=== PATIENT | female | born 1960 | race Caucasian/White ===

== ENCOUNTER 2018-01-06 00:04 | Observation (INO) | payer OTHER ==
[2018-01-06] MEDS ORDERED: ASPIRIN 81 MG CHEWABLE TAB PO ONE (00:15)
[2018-01-06] MEDS ORDERED: NS 1,000 ML IV ONE (00:15)
--- NOTE | 2018-01-06 00:15 | EDPHY ---
H & P Stated Complaint: pressure CP mid strenal Time Seen by Provider: 01/06/18 00:15 HPI/ROS: HPI CHIEF COMPLAINT: Chest pressure. HISTORY OF PRESENT ILLNESS: 57-year-old female, history of anxiety, as well as SVT, presents emergency room with substernal chest pressure. Does not radiate. She states this started 3 hr ago. It has been constant. She lives up in [place] for [place]. She decided to come here this evening as her principal bioinformatics specialist is here. She denies any radiation of pain but complains of current substernal chest pressure. She has felt nauseous earlier. Denies pleuritic pain. Denies shortness of breath. Denies radiation of pain. Denies recent illness. Denies fever productive cough. Patient reports to me she has not been taking her verapamil. ===== Of note there are no old records in the system under this account however was able to located different account and [address] Lora. Past Medical History: History of SVT, AVRNT, anxiety Past Surgical History: Appendectomy, gallbladder removal, cardiac ablation. Social History: Denies daily use drugs alcohol tobacco. Resides in [place] Family History: Denies. ROS REVIEW OF SYSTEMS: 10 Systems were reviewed and negative with the exception of the elements mentioned in the history of present illness. Exam Constitutional nontoxic triage nursing summary reviewed, vital signs reviewed , awake/alert. Heart rate 199. Blood pressure stable. Eyes normal conjunctivae and sclera, EOMI, PERRLA. HENT normal inspection, atraumatic, moist mucus membranes, no epistaxis, neck supple/ no meningismus, no raccoon eyes. Respiratory clear to auscultation bilaterally, normal breath sounds, no respiratory distress, no wheezing. Cardiovascular very tachycardic., regular rhythm, no murmur, no edema, distal pulses normal. Gastrointestinal soft, non-tender, no rebound, no guarding, normal bowel sounds, no distension, no pulsatile mass. Genitourinary no CVA tenderness. Musculoskeletal no midline vertebral tenderness, full range of motion, no calf swelling, no tenderness of extremities, no meningismus, good pulses, neurovascularly intact. Skin pink, warm, & dry, no rash, skin atraumatic. Neurologic awake, alert and oriented x 3, AAOx3, moves all 4 extremities equally, motor intact, sensory intact, CN II-XII intact, normal cerebellar, normal vision, normal speech. Psychiatric normal mood/affect. Heme/Lymph/Immune no lymphadenopathy. Differential diagnosis includes but is not limited to: ACS, atypical chest pain , pneumothorax, pneumonia, pulmonary embolism, aortic dissection, congestive heart failure, tumor, musculoskeletal pain, esophageal pain, GERD, peptic ulcer disease, pancreatitis Medical Decision Making: Plan for this patient IV establishment full child monitor, EKG, check troponin, D-dimer, chest x-ray, give full-dose aspirin, give a dose of nitroglycerin to see if this improves her discomfort. Re- evaluate. Close cardiac monitoring. Re-evaluation: EKG interpretation by me on record in [facility] system. Impression time of EKG 0022: EKG reveals supraventricular tachycardia rate of 199. Right bundle- branch block present. 1243: This patient was moved to ER room 2 where she was set up for chemical cardioversion with adenosine for SVT patient reports to me that she has had adenosine in the past multiple times without any affect. She states that it typically does not work. I did attempt 6 mg of adenosine which did not have any benefit. I then subsequently tried 12 mg IV adenosine which did not have any benefit. She remains in SVT with a heart rate in the 170s to 190s. She does complain of chest pressure. Given that adenosine did not work and in the past she has had to have a rapid milk given I will consult Cardiology for further recommendations. She also has had in the past electrical cardioversion. She is not on stable this time. Blood pressure stable. She received fentanyl for pain control. 1257: I spoke with Dr. Amaya. Recommends a bolus of amiodarone. Will review the EKG. 0106: Patient converted by herself heart rate is currently 96. She is feeling much better. At this time of conversion she did not receive any amiodarone. Repeat EKG status: Normal sinus rhythm rate of 95, Q-waves V1 V2 V3. No ST elevation. Time of EKG 1:05 a.m., this is an EKG performed after she self converted. 0123: Spoke with Dr. Urbano Amaya with Cardiology reviewed the case in detail. Patient be admitted to PCU for telemetry monitoring. He does not want any current medications. Initially she was going to get amio. This was not given. Patient hemodynamically stable and feeling much better after heart rate is down from 199 to currently 95. She denies any chest pain at this time. 1:24 a.m.. I asked the hospitalist service for admission Dr. Maria. Discussed case in detail. Agrees to admit. 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 In the past patient is been cardioverted additionally has had 2 ablations, additionally has chemically cardioverted with 2.5 mg IV verapamil. Source: Patient - Personal History Current Tetanus/Diphtheria Vaccine: Yes Current Tetanus Diphtheria and Acellular Pertussis (TDAP): Yes - Medical/Surgical History Hx Asthma: No Hx Chronic Respiratory Disease: No Hx Diabetes: No Hx Cardiac Disease: Yes Hx Renal Disease: No Hx Cirrhosis: No Hx Alcoholism: No Hx HIV/AIDS: No Hx Splenectomy or Spleen Trauma: No Other PMH: SVT, ablation, appy, cholecystectomy - Social History Smoking Status: Never smoked Constitutional: Initial Vital Signs Temperature (C) 36.6 C 01/06/18 00:08 Heart Rate 84 01/06/18 00:08 Respiratory Rate 18 01/06/18 00:08 Blood Pressure 98/71 L 01/06/18 00:08 O2 Sat (%) 94 01/06/18 00:08 O2 Delivery Mode Nasal Cannula O2 (L/minute) 2 Allergies/Adverse Reactions: amoxicillin Allergy (Verified 01/06/18 10:55) Hives aspirin Allergy (Verified 01/06/18 10:55) Anxiety Home Medications: Medication Instructions Recorded ALPRAZolam [Xanax 1 MG (*)] 1 mg PO HS 01/06/18 Doxepin HCl 37.5 mg PO HS 01/06/18 Estradiol [Estradiol 1 MG (*)] 2 mg PO HS 01/06/18 Ibuprofen [Motrin (*)] 200 mg PO DAILY PRN 01/06/18 Multivitamins [Multivitamin (*)] 1 each PO DAILY 01/06/18 Spironolactone [Aldactone] 100 mg PO HS 01/06/18 Verapamil [Calan 40MG (*)] 40 mg PO TID #90 tab 01/06/18 Medical Decision Making - Data Points Laboratory Results: Laboratory Results 01/06/18 00:25 01/06/18 00:25 Medications Given: Discontinued Medications Adenosine (Adenosine) 6 mg IVP EDNOW ONE Stop: 01/06/18 00:26 Last Admin: 01/06/18 00:37 Dose: 6 mg Adenosine (Adenosine) 12 mg IVP EDNOW ONE Stop: 01/06/18 00:47 Last Admin: 01/06/18 00:41 Dose: 12 mg Aspirin (Aspirin) 324 mg PO EDNOW ONE Stop: 01/06/18 00:16 Last Admin: 01/06/18 00:30 Dose: Not Given Enoxaparin Sodium (Lovenox) 40 mg SC DAILY [facility] Stop: 07/05/18 08:59 Last Admin: 01/06/18 09:25 Dose: 40 mg Fentanyl (Sublimaze) 50 mcg IVP EDNOW ONE Stop: 01/06/18 00:47 Last Admin: 01/06/18 00:47 Dose: 50 mcg Sodium Chloride (Ns) 1,000 mls @ 0 mls/hr IV EDNOW ONE; Wide Open PRN Reason: Protocol Stop: 01/06/18 00:16 Last Admin: 01/06/18 00:30 Dose: 1,000 mls Amiodarone HCl 300 mg/ (Dextrose) 106 mls @ 318 mls/hr IV ONCE ONE Stop: 01/06/18 01:14 Last Admin: 01/06/18 01:17 Dose: Not Given Nitroglycerin (Nitrostat) 0.4 mg SL EDNOW ONE Stop: 01/06/18 00:21 Last Admin: 01/06/18 01:17 Dose: Not Given Verapamil HCl (Calan) 40 mg PO TID [facility] Stop: 07/05/18 09:59 Last Admin: 01/06/18 10:08 Dose: 40 mg Point of Care Test Results: Chemistry 01/06/18 00:25 POC Troponin I 0.07 ng/mL ng/mL (0.00-0.08) Departure - Departure Disposition: [facility] Acute Clinical Impression: SVT (supraventricular tachycardia) Condition: Good
[2018-01-06] MEDS ORDERED: NITROGLYCERIN 0.4 MG BTL SL ONE (00:20)
[2018-01-06] MEDS ORDERED: ADENOSINE 6 MG/2 ML VIAL IVP ONE ×2 (00:25→00:46)
[2018-01-06] MEDS ORDERED: fentaNYL 100 MCG/2 ML INJ ONE (00:44)
[2018-01-06] MEDS ORDERED: fentaNYL 100 MCG/2 ML INJ IVP ONE (00:46)
[2018-01-06] MEDS ORDERED: AMIODARONE HCL 300 MG in D5W 100 ML IV ONE (00:55)
[2018-01-06 01:06] LABS: PLATELET COUNT 243 10^3/uL (150-400)
[2018-01-06 01:12] LABS: INR 1.05 (0.83-1.16); PROTIME(PATIENT) 13.9 SEC (12.0-15.0)
[2018-01-06] MEDS ORDERED: ACETAMINOPHEN 325 MG TAB PO PRN (01:21)
[2018-01-06] MEDS ORDERED: ONDANSETRON DISINTEGRATING 4 MG TAB PO PRN (01:21)
[2018-01-06] MEDS ORDERED: ONDANSETRON 4 MG/2 ML VIAL IVP PRN (01:21)
--- NOTE | 2018-01-06 01:51 | PDGENHP ---
History and Physical - Chief Complaint Chest pressure - History of Present Illness 57 yo F w/ hx of fascicular ventricular tachycardia presents with chest pressure. Patient noted onset of severe, central chest pressure at around 8:30 PM. She checked her vital signs and noted an elevated, fluctuating heart rate. She took some long acting Verapamil that she keeps in her purse and drove down to our ED from [place]. She stopped taking her Verapamil several months ago due to side effect of severe constipation. Upon arrival in the ED she was given adenosine, which was ineffective. Cardiology was consulted (Dr. Amaya), who requested amiodarone. However, prior to this being given, patient converted to sinus rhythm. At the time of my evaluation she is feeling well and remains in sinus rhythm. Case discussed with ED physician Dr. Diallo; records reviewed in EMR (two separate accounts under same name). History Information - Allergies/Home Medication List Allergies/Adverse Reactions: amoxicillin Allergy (Verified 01/06/18 00:13) Home Medications: Doxapram HCl 01/06/18 [Last Taken Unknown] Estradiol 01/06/18 [Last Taken Unknown] Spironolactone 01/06/18 [Last Taken Unknown] Verapamil ER 01/06/18 [Last Taken Unknown] I have personally reviewed and updated: family history, medical history - Past Medical History Additional medical history: AVNRT s/p ablation. Fascicular ventricular tachycardia s/p ablation but with recurrence. Male to female hormone therapy - Surgical History Reports: appendectomy, cholecystectomy - Family History Positive for: CAD - Social History Smoking Status: Never smoked Review of Systems Review of Systems: ROS: 10pt was reviewed & negative except for what was stated in HPI & below Physical Exam Physical Exam: Temp Pulse Resp BP Pulse Ox 36.6 C 95 18 103/82 H 92 01/06/18 00:08 01/06/18 01:16 01/06/18 01:16 01/06/18 01:16 01/06/18 01:16 Constitutional: no apparent distress, not in pain Eyes: PERRL, EOMI Ears, Nose, Mouth, Throat: moist mucous membranes, no oral mucosal ulcers Cardiovascular: regular rate and rhythym, no murmur, rub, or gallop Respiratory: no respiratory distress, clear to auscultation Gastrointestinal: normoactive bowel sounds, soft, non-tender abdomen Skin: warm, normal color Musculoskeletal: full muscle strength, no muscle tenderness Neurologic: AAOx3, CN II-XII Intact Psychiatric: interacting appropriately, not anxious Lab Data & Imaging Review 01/06/18 00:25 01/06/18 00:25 WBC 7.28 10^3/uL (3.80-9.50) 01/06/18 00:25 RBC 5.94 10^6/uL (4.18-5.33) H 01/06/18 00:25 Hgb 17.6 g/dL (12.6-16.3) H 01/06/18 00:25 Hct 51.4 % (38.0-47.0) H 01/06/18 00:25 MCV 86.5 fL (81.5-99.8) 01/06/18 00:25 MCH 29.6 pg (27.9-34.1) 01/06/18 00:25 MCHC 34.2 g/dL (32.4-36.7) 01/06/18 00:25 RDW 12.3 % (11.5-15.2) 01/06/18 00:25 Plt Count 243 10^3/uL (150-400) 01/06/18 00:25 MPV 10.9 fL (8.7-11.7) 01/06/18 00:25 Neut % (Auto) 59.0 % (39.3-74.2) 01/06/18 00:25 Lymph % (Auto) 27.2 % (15.0-45.0) 01/06/18 00:25 [place] % (Auto) 10.4 % (4.5-13.0) 01/06/18 00:25 Eos % (Auto) 2.5 % (0.6-7.6) 01/06/18 00:25 Baso % (Auto) 0.5 % (0.3-1.7) 01/06/18 00:25 Nucleat RBC Rel Count 0.0 % (0.0-0.2) 01/06/18 00:25 Absolute Neuts (auto) 4.29 10^3/uL (1.70-6.50) 01/06/18 00:25 Absolute Lymphs (auto) 1.98 10^3/uL (1.00-3.00) 01/06/18 00:25 Absolute Monos (auto) 0.76 10^3/uL (0.30-0.80) 01/06/18 00:25 Absolute Eos (auto) 0.18 10^3/uL (0.03-0.40) 01/06/18 00:25 Absolute Basos (auto) 0.04 10^3/uL (0.02-0.10) 01/06/18 00:25 Absolute Nucleated RBC 0.00 10^3/uL (0-0.01) 01/06/18 00:25 Immature Gran % 0.4 % (0.0-1.1) 01/06/18 00:25 Immature Gran # 0.03 10^3/uL (0.00-0.10) 01/06/18 00:25 PT 13.9 SEC (12.0-15.0) 01/06/18 00:25 INR 1.05 (0.83-1.16) 01/06/18 00:25 APTT 27.8 SEC (23.0-38.0) 01/06/18 00:25 D-Dimer < 0.27 ug/mLFEU (0.00-0.50) 01/06/18 00:25 Sodium 138 mEq/L (135-145) 01/06/18 00:25 Potassium 4.0 mEq/L (3.3-5.0) 01/06/18 00:25 Chloride 101 mEq/L (97-110) 01/06/18 00:25 Carbon Dioxide 26 mEq/l (22-31) 01/06/18 00:25 Anion Gap 11 mEq/L (6-14) 01/06/18 00:25 BUN 20 mg/dL (7-23) 01/06/18 00:25 Creatinine 1.1 mg/dL (0.6-1.0) H 01/06/18 00:25 Estimated GFR 51 01/06/18 00:25 Glucose 168 mg/dL (70-100) H 01/06/18 00:25 Calcium 9.9 mg/dL (8.5-10.4) 01/06/18 00:25 Magnesium 1.9 mg/dL (1.6-2.3) 01/06/18 00:25 Total Bilirubin 0.5 mg/dL (0.1-1.4) 01/06/18 00:25 Conjugated Bilirubin 0.2 mg/dL (0.0-0.5) 01/06/18 00:25 Unconjugated Bilirubin 0.3 mg/dL (0.0-1.1) 01/06/18 00:25 AST 22 IU/L (14-46) 01/06/18 00:25 ALT 27 IU/L (9-52) 01/06/18 00:25 Alkaline Phosphatase 65 IU/L (38-126) 01/06/18 00:25 POC Troponin I 0.07 ng/mL (0.00-0.08) 01/06/18 00:25 NT-Pro-B Natriuret Pep 64 pg/mL (0-125) 01/06/18 00:25 Total Protein 6.8 g/dL (6.3-8.2) 01/06/18 00:25 Albumin 3.9 g/dL (3.5-5.0) 01/06/18 00:25 Lipase 90 IU/L (23-300) 01/06/18 00:25 Visualized and Interpreted EKG results: Yes EKG Interpretation: Positive for: other (SVT HR>190) Assessment & Plan Assessment: 57 yo F w/ hx of fascicular ventricular tachycardia presents with recurrence. Plan: 1. Tachycardia - Likely recurrence of known fascicular ventricular tachycardia. She had an ablation for this in 2006 but has had a few recurrences since. She stopped taking her verapamil several months ago due to side effect of constipation. She did take some verapamil this evening, which is likely what terminated her tachycardia after a few hours noting it was long acting with slow onset. - Admit to PCU for observation - Cardiology consulted, will see patient in the morning - TTE ordered for further evaluation - Will check TSH with morning labs 2. Hormonal therapy - On spironolactone and estradiol daily. - Continue pending reconciliation Diet - NPO pending cardiology evaluation Code - Full Ppx - LMWH Dispo - Admit under observation status
[2018-01-06 05:08] LABS: PLATELET COUNT 187 10^3/uL (150-400)
[2018-01-06 07:52] VITALS: BP 112/58
[2018-01-06] MEDS ORDERED: ENOXAPARIN 40 MG/0.4 ML SYR SC SCH (09:00)
[2018-01-06] MEDS ORDERED: MAGNESIUM HYDROXIDE 30 ML UDCUP PO PRN (09:50)
--- NOTE | 2018-01-06 09:50 | PDCARPN ---
Cardiology Progress Note Chief Complaint: fascicular VT Assessment/Plan: Assessment: 57-y/o F PMH SVT and NSVT s/p previous AVNRT. Has been on Verapamil but has not been taking this for several months due to severe obstipation. Presented yesterday with VT. Spontaneously converted in the ED after having taken oral Verapamil prior to arrival. Did have associated severe chest pressure. #. VT: will plan to resume Verapamil she requests short-acting to see if that mitigates her obstipation #. cp: pt reports previous episodes of cp when having tachycardia ECG appears nonischemic and POC trop negative will repeat trop now will likely plan for outpatient nuc #. obstipation: we reviewed trial of different laxatives try Milk of Mag as daily Plan: 01/06/18 09:45 Subjective: No further cp or palps. We discussed here severe constipation which requires self-disimpaction. This has resolved in the absence of Verapamil. Reviewed/Discussed With: other (Drs. Lora and Mekhi) Objective: Vital Signs (8 Hrs) Temp Pulse Resp BP Pulse Ox 01/06/18 07:51 98.4 F 72 13 112/58 L 94 01/06/18 02:10 98.1 F 89 18 100/70 94 01/06/18 02:00 97.5 F 95 16 85/64 L 96 01/06/18 01:47 93 18 100/74 94 Intake/Output (24 Hrs) 01/05/18 01/06/18 01/07/18 05:59 05:59 05:59 Intake Total 1000 Balance 1000 Intake: IV Infused (ml) 1000 Other: Weight 78.6 kg Intake Quantity No: npo Sufficient Result Diagrams: 01/06/18 04:30 01/06/18 04:30 Cardiac Labs: Laboratory Tests 01/06/18 00:25 POC Troponin I 0.07 EKG: SR Telemetry: reviewed- SR - Physical Exam Constitutional: no apparent distress Eyes: PERRL, anicteric sclera Ears, Nose, Mouth, Throat: moist mucous membranes Cardiovascular: regular rate and rhythm, no murmurs Respiratory: clear to auscultate bilat, no crackles, no wheezes Skin: no rashes, no abrasions Neurologic: AAOx3 Psychiatric: cooperative, interactive ICD10 Worksheet Patient Problems: Problems Problem Status Onset SVT (supraventricular tachycardia) Acute
[2018-01-06] MEDS ORDERED: VERAPAMIL 40 MG TAB PO SCH (10:00)
--- NOTE | 2018-01-06 11:48 | ASMTCMCOM ---
CM Note CM Note Notes: 01/06/2018 Case Management Note Met pt during rounds this morning. Pt admitted for SVT. Plan for a stress test outpatient. There are no therapy evals ordered at this time. There are no case managment d/c needs identified d/t pt age, family support, and independence in ADL's Case Management d/c poc: independent with follow up as directed. Case Management available if needs change. Date Signed: 01/06/2018 11:47 AM Electronically Signed By:Stephani Hermosillo RN
--- NOTE | 2018-01-06 11:49 | ECHO ---
[email or web address] [address] [address] Main: [phone] Fax: [email or web address] Echocardiogram Name: NEW ENRIQUEZ MR#: [id number] Study Date: 01/06/2018 Study Time: 10:06 AM Date of : 1960 Age: 57 year(s) Height: 177.8 cm (70 in.) Weight: 77.11 kg (170 lb.) BSA: 1.95 m2 Gender: Female Examination: Echo Indication: Supraventricular Tachycardia, hx of ablation Image Quality: Adequate Contrast: Requested by: Pepe Hart BP: 112 mmHg/58 mmHg Heart Rate: Rhythm: Indication: Supraventricular Tachycardia, hx of ablation Procedure Staff Canary Raiser: Zelda Dunn [facility] Reading Physician: Jim Pope MD Requesting Provider: Conclusions: Normal size left ventricle. No LV hypertrophy. EF is 65 %. No regional wall motion abnormality. Normal diastolic LV function. The mitral valve is normal in appearance. Mild mitral valve regurgitation is present. Mild tricuspid regurgitation is present. Right ventricular systolic pressure measures 24mmHg. No pericardial effusion. No prior study for comparison. Measurements: Chambers Valvular Assessment AV/MV Valvular Assessment TV/PV Normal Normal Normal Name Value Range Name Value Range Name Value Range Ao Emily (2D): 3.0 cm (1.4 cm-2.6 AV Vmax: 0.90 m/s (1 m/s-1.7 TR Vmax: 2.17 mm/s ( - ) cm) m/s) TR PGmax: 19 mmHg ( - ) IVSd (2D): 0.9 cm (0.6 cm-1.1 AV maxP mmHg ( - ) syst. PAP: 24 mmHg ( - ) cm) AV meanP mmHg ( - ) PV Vmax: 0.64 m/s (0.6 m/s-0.9 LVDd (2D): 3.6 cm (3.9 cm-5.3 LVOT Vmax: 0.78 m/s (0.7 m/s-1.1 m/s) cm) m/s) PV PGmax: 2 mmHg ( - ) LVDs (2D): 2.0 cm (2.1 cm-4 BRUNO (Vmax): 2.7 cm2 ( - ) cm) BRUNO (VTI): 2.8 cm ( - ) LVPWd (2D): 0.9 cm ( - ) MV E Vmax: 0.61 m/s ( - ) LVOTd 2.0 cm 2.0 cm mm MV A Vmax: 0.50 m/s ( - ) LVEF (BP): 65 % (>=55 %) MV E/A: 1.22 ( - ) RVDd(2D): 3.1 cm (1.9 cm-3.8 MV PHT: 0.078 s ( - ) cmmm) MVA (PHT): 2.8 s ( - ) Patient: NEW ENRIQUEZ Study Date: 01/06/2018 Page 1 of 2 10:06 AM Continued Measurements: Chambers Valvular Assessment AV/MV Valvular Assessment TV/PV Name Value Name Value Name Value LADs: 3.0 cm MV DecTime: 211 m/s CVP (est.): 5 mmHg LADs Lon.6 cm MV E/E' Septal: 7.10 LA Area: 14.2 cm2 MV E/E' Lateral: 5.70 LA Volume: 34 ml LA Volume Index: 17.4 ml/m2 RA Area: 11.8 cm2 Additional Vessels Name Value Ao Ascendin.9 cm Inferior Vena Cava: 2.2 cm Findings: Left Ventricle: Normal size left ventricle. No LV hypertrophy. Normal global systolic LV function. EF is 65 %. No regional wall motion abnormality. Normal diastolic LV function. Right Ventricle: Normal size right ventricle. Normal RV function. Left Atrium: The left atrium is normal in size. Right Atrium: The right atrium is normal in size. Mitral Valve: The mitral valve is normal in appearance. Mild mitral valve regurgitation is present. No mitral stenosis is present. Aortic Valve: The aortic valve is tri-leaflet. There is no significant aortic valve regurgitation. No aortic valve stenosis is present. Tricuspid Valve: The tricuspid valve appears normal. Mild tricuspid regurgitation is present. The pulmonary artery pressure is normal. Right ventricular systolic pressure measures 24mmHg. Pulmonic Valve: The pulmonic valve is normal in appearance and function. There is no pulmonic regurgitation seen. Aorta: The aorta is normal. Normal size aortic root measuring 3.0 cm. Normal size ascending aorta measuring 2.9 cm. IVC: The IVC is mildly dilated. Pericardium: No pericardial effusion. No pleural effusion. (No Signature Object) Patient: NEW ENRIQUEZ Study Date: 01/06/2018 Page 2 of 2 10:06 AM [id number]
--- NOTE | 2018-01-06 12:18 | PDCARCONS ---
Cardiology Consult Reason for Consult: Ventricular tachycardia Chief Complaint: Palpitations, chest discomfort Requesting Physician: Hospitalist team History of Present Illness: Patient known to me from outpatient practice. 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 Ablation for fascicular ventricular tachycardia was not successful but she has been controlled with verapamil. 1 month ago she stopped taking her verapamil because of constipation. Yesterday she presented with sustained fascicular ventricular tachycardia, unresponsive to adenosine, terminated spontaneously in the ED. She had taken 1 dose of sustained release verapamil 3 hr prior to termination of tachycardia. Her is in the room today. She reports that she is pain-free. History Information - Allergies/Home Medication List Allergies/Adverse Reactions: amoxicillin Allergy (Verified 01/06/18 10:55) Hives aspirin Allergy (Verified 01/06/18 10:55) Anxiety Home Medications: ALPRAZolam [Xanax 1 MG (*)] 1 mg PO HS 01/06/18 [Last Taken 01/05/18] Doxepin HCl 37.5 mg PO HS 01/06/18 [Last Taken 01/05/18] Estradiol [Estradiol 1 MG (*)] 2 mg PO HS 01/06/18 [Last Taken 01/05/18] Ibuprofen [Motrin (*)] 200 mg PO DAILY PRN 01/06/18 [Last Taken Unknown] Multivitamins [Multivitamin (*)] 1 each PO DAILY 01/06/18 [Last Taken Unknown] Spironolactone [Aldactone] 100 mg PO HS 01/06/18 [Last Taken 01/05/18] I have personally reviewed and updated: family history, medical history, social history Past Medical History: - Social History Smoking Status: Never smoked Physical Exam Physical Exam: Temp Pulse Resp BP Pulse Ox 36.9 C 72 13 112/58 L 94 01/06/18 07:51 01/06/18 07:51 01/06/18 07:51 01/06/18 07:51 01/06/18 07:51 O2 (L/minute) 2 Constitutional: no apparent distress, appears nourished, not in pain Eyes: PERRL, EOMI Ears, Nose, Mouth, Throat: moist mucous membranes, hearing normal Cardiovascular: regular rate and rhythym, no murmur, rub, or gallop Respiratory: no respiratory distress, no rales or rhonchi Gastrointestinal: normoactive bowel sounds, soft, non-tender abdomen Neurologic: AAOx3 Psychiatric: interacting appropriately, not anxious, not encephalopathic Lab and Imaging 01/06/18 04:30 01/06/18 04:30 WBC 5.74 10^3/uL (3.80-9.50) 01/06/18 04:30 RBC 4.99 10^6/uL (4.18-5.33) 01/06/18 04:30 Hgb 14.8 g/dL (12.6-16.3) 01/06/18 04:30 Hct 42.5 % (38.0-47.0) 01/06/18 04:30 MCV 85.2 fL (81.5-99.8) 01/06/18 04:30 MCH 29.7 pg (27.9-34.1) 01/06/18 04:30 MCHC 34.8 g/dL (32.4-36.7) 01/06/18 04:30 RDW 12.4 % (11.5-15.2) 01/06/18 04:30 Plt Count 187 10^3/uL (150-400) 01/06/18 04:30 MPV 10.7 fL (8.7-11.7) 01/06/18 04:30 Neut % (Auto) 65.1 % (39.3-74.2) 01/06/18 04:30 Lymph % (Auto) 22.6 % (15.0-45.0) 01/06/18 04:30 [place] % (Auto) 10.1 % (4.5-13.0) 01/06/18 04:30 Eos % (Auto) 1.6 % (0.6-7.6) 01/06/18 04:30 Baso % (Auto) 0.3 % (0.3-1.7) 01/06/18 04:30 Nucleat RBC Rel Count 0.0 % (0.0-0.2) 01/06/18 04:30 Absolute Neuts (auto) 3.73 10^3/uL (1.70-6.50) 01/06/18 04:30 Absolute Lymphs (auto) 1.30 10^3/uL (1.00-3.00) 01/06/18 04:30 Absolute Monos (auto) 0.58 10^3/uL (0.30-0.80) 01/06/18 04:30 Absolute Eos (auto) 0.09 10^3/uL (0.03-0.40) 01/06/18 04:30 Absolute Basos (auto) 0.02 10^3/uL (0.02-0.10) 01/06/18 04:30 Absolute Nucleated RBC 0.00 10^3/uL (0-0.01) 01/06/18 04:30 Immature Gran % 0.3 % (0.0-1.1) 01/06/18 04:30 Immature Gran # 0.02 10^3/uL (0.00-0.10) 01/06/18 04:30 PT 13.9 SEC (12.0-15.0) 01/06/18 00:25 INR 1.05 (0.83-1.16) 01/06/18 00:25 APTT 27.8 SEC (23.0-38.0) 01/06/18 00:25 D-Dimer < 0.27 ug/mLFEU (0.00-0.50) 01/06/18 00:25 Sodium 137 mEq/L (135-145) 01/06/18 04:30 Potassium 4.0 mEq/L (3.3-5.0) 01/06/18 04:30 Chloride 106 mEq/L (97-110) 01/06/18 04:30 Carbon Dioxide 23 mEq/l (22-31) 01/06/18 04:30 Anion Gap 8 mEq/L (6-14) 01/06/18 04:30 BUN 17 mg/dL (7-23) 01/06/18 04:30 Creatinine 0.8 mg/dL (0.6-1.0) 01/06/18 04:30 Estimated GFR > 60 01/06/18 04:30 Glucose 102 mg/dL (70-100) H 01/06/18 04:30 Calcium 8.6 mg/dL (8.5-10.4) 01/06/18 04:30 Phosphorus 4.2 mg/dL (2.5-4.5) 01/06/18 04:30 Magnesium 1.8 mg/dL (1.6-2.3) 01/06/18 04:30 Total Bilirubin 0.5 mg/dL (0.1-1.4) 01/06/18 00:25 Conjugated Bilirubin 0.2 mg/dL (0.0-0.5) 01/06/18 00:25 Unconjugated Bilirubin 0.3 mg/dL (0.0-1.1) 01/06/18 00:25 AST 22 IU/L (14-46) 01/06/18 00:25 ALT 27 IU/L (9-52) 01/06/18 00:25 Alkaline Phosphatase 65 IU/L (38-126) 01/06/18 00:25 POC Troponin I 0.07 ng/mL (0.00-0.08) 01/06/18 00:25 Troponin I 0.304 ng/mL (0.000-0.034) H 01/06/18 10:33 NT-Pro-B Natriuret Pep 64 pg/mL (0-125) 01/06/18 00:25 Total Protein 6.8 g/dL (6.3-8.2) 01/06/18 00:25 Albumin 3.9 g/dL (3.5-5.0) 01/06/18 00:25 Lipase 90 IU/L (23-300) 01/06/18 00:25 TSH 1.380 uIU/mL (0.465-4.680) 01/06/18 04:30 A/P Assessment: 1. Fascicular ventricular tachycardia 2. Chest discomfort with mildly elevated troponin Plan: 57-year-old female presenting with sustained fascicular ventricular tachycardia. Patient has been noncompliant with verapamil which has controlled her ventricular tachycardia for 11 years because of constipation. Plan is: 1. Resume verapamil along with stool softeners 2. Repeat ablation procedure will be scheduled. Patient will hold verapamil for 2 weeks prior to the procedure. Risks of procedure were reviewed with patient and . Risks and benefits of EPS/ablation including but not limited to risks of , myocardial infarction, stroke, tamponade which may require emergent cardiac surgery, AV block requiring implantation of a permanent pacemaker, vascular access complications which may require surgery, deep venous thrombosis, pulmonary embolism, infection, risks associated with sedation/ anesthesia were discussed with the patient. 3. Mildly elevated troponin likely related to heart rate 190-200 beats per minute range for 3 hr. Schedule myocardial perfusion stress test as outpatient. Patient HD stable and pain free at this time.
--- NOTE | 2018-01-06 12:25 | ASMTLACE ---
LACE Length of stay for Answers: Less than 1 day current admission Acuity / Level of Answers: No Care: Did the patient have an inpatient admission? Comorbidities - select Answers: Other Notes: Hx of SVT all that apply # of Emergency department Answers: 1-2 visits in the last 6 months Social determinants Answers: Mental health diagnosis (anxiety, depression, pers onality disorders, etc.) Score: 5 Date Signed: 01/06/2018 12:25 PM Electronically Signed By:Stephani Hermosillo RN
--- NOTE | 2018-01-06 12:31 | ASDISCHSUM ---
Discharge Information Plan Status:Home with No Needs Medically Cleared to Leave:01/06/2018 Discharge Date:01/06/2018 12:27 PM CM D/C Disposition:Home, Routine, Self-Care ADT D/C Disposition:Home, Routine, Self-Care Projected Discharge Date:01/06/2018 12:27 PM Transportation at D/C:Family Discharge Delay Reason: Follow-Up Date:01/06/2018 12:27 PM Discharge Slot: Final Diagnosis: Placement Information Patient Contact Information Contact Name:TAI Relationship: Address: Home Phone: Work Phone: City: Alternate Phone: State/[employer] Code: Email: Financial Information Financial Class:[employer] Primary Plan Desc:[facility] LOCAL Primary Plan Number:[id number] Secondary Plan Desc: Secondary Plan Number: Assessment Information LACE LACE Length of stay for Answers: Less than 1 day current admission Acuity / Level of Answers: No Care: Did the patient have an inpatient admission? Comorbidities - select Answers: Other Notes: Hx of SVT all that apply # of Emergency department Answers: 1-2 visits in the last 6 months Social determinants Answers: Mental health diagnosis (anxiety, depression, pers onality disorders, etc.) Score: 5 Date Signed: 01/06/2018 12:25 PM Electronically Signed By:Stephani Hermosillo RN [facility] CM Progress Note CM Note CM Note Notes: 01/06/2018 Case Management Note Met pt during rounds this morning. Pt admitted for SVT. Plan for a stress test outpatient. There are no therapy evals ordered at this time. There are no case managment d/c needs identified d/t pt age, family support, and independence in ADL's Case Management d/c poc: independent with follow up as directed. Case Management available if needs change. Date Signed: 01/06/2018 11:47 AM Electronically Signed By:Stephani Hermosillo RN Intervention Information
--- NOTE | 2018-01-06 13:25 | GDS ---
PRIMARY RETAIL SUPERVISOR: Dr. Lora HISTORY OF PRESENT ILLNESS: A 57-year-old female with history of VT ablated in 2006. She also had an ablation in 2005 for AVR and DEENA. Ablation for the VT was not successful. Thus, she has been on verapamil, but she stopped this a month ago due to severe constipation. Yesterday, she presented today to the emergency room with a heart rate in the 190s, unresponsive to adenosine but did terminate spontaneously in the ER. She had taken a dose of sustained release verapamil 3 hours prior to tachycardia. HOSPITAL COURSE BY PROBLEM: 1. Supraventricular tachycardia: Due to medication noncompliance. She is to resume verapamil 40 mg three times daily short-acting with stool softeners. She will have an ablation procedure scheduled as an outpatient. Echocardiogram revealed no wall motion abnormality, and EF was normal. 2. Constipation: Counseled on plenty of fluids and daily stool softeners. 3. Hormonal therapy: Continue home medications. DISPOSITION: The patient is stable for discharge home. NEW MEDICATIONS: Verapamil 40 mg three times daily. FOLLOWUP: With Cardiology for ablation. PHYSICAL EXAMINATION: VITAL SIGNS: Temperature 36.9, blood pressure 112/58, heart rate in the 70s, respirations 14, 94% on room air. GENERAL: Well appearing, no acute distress. HEENT: PERRLA. Moist mucous membranes. CV: Regular rate and rhythm. LUNGS: Clear. ABDOMEN: Soft, nontender, and nondistended. Positive bowel sounds. : No Holt. MUSCULOSKELETAL: 5/5 upper and lower extremity strength. NEURO: 2 through 12 intact. PSYCH: Alert and oriented x3. TIME SPENT ON DISCHARGE: Greater than 30 minutes bedside with patient and discussing case with cardiology team. /[id number]/MODL MTDD
--- NOTE | 2018-01-09 23:58 | CPEKG ---
Test Reason : OPEN Blood Pressure : / mmHG Vent. Rate : 199 BPM Atrial Rate : 200 BPM P-R Int : 109 ms QRS Dur : 117 ms QT Int : 283 ms P-R-T Axes : -26 -72 075 degrees QTc Int : 515 ms Supraventricular tachycardia Right bundle branch block Inferior infarct, old Probable posterior infarct, acute Anterior infarct, old Confirmed by Felipe Gill ([id number]) on 01/09/2018 11:57:47 PM Referred By: Confirmed By:Felipe Gill
--- NOTE | 2018-01-09 23:58 | CPEKG ---
Test Reason : OPEN Blood Pressure : / mmHG Vent. Rate : 095 BPM Atrial Rate : 095 BPM P-R Int : 176 ms QRS Dur : 077 ms QT Int : 336 ms P-R-T Axes : 068 030 040 degrees QTc Int : 423 ms Sinus rhythm Anteroseptal infarct, old Confirmed by Felipe Gill ([id number]) on 01/09/2018 11:57:48 PM Referred By: Confirmed By:Felipe Gill
== END 2018-01-06 12:27 | disposition home or self-care (01) ==
LOC: F2W 02:08
PROVIDERS: ADMIT Student in an Organized Health Care Education/Training Program; ATTEND Internal Medicine
DX: I47.1 Supraventricular tachycardia (principal); T46.1X6A Underdosing of calcium-channel blockers, initial encounter; Z91.128 Patient's intentional underdosing of medication regimen for other reason
CPT/HCPCS: 71045; 93005; 93306; 96361; 96374; 96375; 99285; G0378; 84484-PO; J0153; J0282; J1650; J3010

== ENCOUNTER 2018-02-03 10:56 | Observation (INO) | payer OTHER ==
[2018-02-03] MEDS ORDERED: NS 1,000 ML IV ONE (11:08)
[2018-02-03 12:06] LABS: PLATELET COUNT 206 10^3/uL (150-400)
[2018-02-03 12:14] LABS: INR 1.02 (0.83-1.16); PROTIME(PATIENT) 13.6 SEC (12.0-15.0)
--- NOTE | 2018-02-03 12:26 | CPEKG ---
Test Reason : OPEN Blood Pressure : / mmHG Vent. Rate : 072 BPM Atrial Rate : 072 BPM P-R Int : 160 ms QRS Dur : 076 ms QT Int : 382 ms P-R-T Axes : 081 063 068 degrees QTc Int : 419 ms Sinus rhythm Low voltage, precordial leads Confirmed by Jose Jaime ([id number]) on 02/03/2018 12:25:50 PM Referred By: Confirmed By:Jose Jaime
--- NOTE | 2018-02-03 12:30 | PDGENHP ---
History & Physical Chief Complaint: fascicular VT Relevant Physical Exam: s1s2 rrr cta ao3 Cardiorespiratory Assessment: for fascicular VT ablation, TS puncture
[2018-02-03] MEDS ORDERED: HEPARIN/DEXTROSE 25,000 UNIT/500 ML BAG ONE (14:50)
[2018-02-03] MEDS ORDERED: LIDOCAINE 1% 300 MG/30 ML SDV ONE (14:50)
[2018-02-03] MEDS ORDERED: BUPIVACAINE 0.75% 10 ML SDV ONE (14:50)
[2018-02-03] MEDS ORDERED: HEPARIN 10,000 UNIT/10 ML MDV (1,000 UNIT/ML) ONE (14:50)
[2018-02-03] MEDS ORDERED: IOPAMIDOL (ISOVUE-300) 100 ML BTL ONE (14:51)
[2018-02-03] MEDS ORDERED: MIDAZOLAM 2 MG/2 ML VIAL ONE (14:54)
[2018-02-03] MEDS ORDERED: MIDAZOLAM 2 MG/2 ML VIAL IVP ONE (14:55)
--- NOTE | 2018-02-03 14:55 | POSTANESTH ---
Post Anesthetic Evaluation Cardiovascular Status: Normal, Stable Respiratory Status: Normal, Stable Level of Consciousness/Mental Status: Can Participate in Eval, Moderately Sleepy Pain Control: Adequate, Prn Tx Ordered (Pt reports back discomfort. Placing pillow under knees.) Nausea/Vomiting Control: Adequate, Prn Tx Ordered Complications Possibly Related to Anesthesia: None Noted
--- NOTE | 2018-02-03 14:58 | PDANEPAE ---
ANE History of Present Illness 57 yo female with episode of V Tach now for ablation. Pt had a remote ablation in the past, and had been maintaining well on Verapamil. Pt has had to D/C the Verapamil due to side effects. ANE Past Medical History - Cardiovascular History Hx Arrhythmias: Yes Hx Chest Pain: No Hx Coronary Artery / Peripheral Vascular Disease: No Hx CHF / Valvular Disease: No - Pulmonary History Hx COPD: No Hx Asthma/Reactive Airway Disease: No Hx Recent Upper Respiratory Infection: No Hx Oxygen in Use at Home: No Hx Sleep Apnea: No - Endocrine History Hx Diabetes: No Hypothyroid: No Hyperthyroid: No Obesity: no - Neurological & Psychiatric Hx Neurological / Psychiatric History Comment: anxiety - Other Health History Other Health History: transgender - Chronic Pain History Chronic Pain: No ANE Review of Systems Review of Systems: - Systems Cardiac: Reports: lightheadedness, palpitations Respiratory: Reports: no symptoms ANE Patient History - Allergies Allergies/Adverse Reactions: amoxicillin Allergy (Verified 01/06/18 10:55) Hives aspirin Allergy (Verified 01/06/18 10:55) Anxiety - Home Medications Home Medications: ALPRAZolam [Xanax 1 MG (*)] 1 mg PO HS 01/06/18 [Last Taken 02/02/18 21:00] Doxepin HCl 37.5 mg PO HS 01/06/18 [Last Taken 02/02/18 21:00] Estradiol [Estradiol 1 MG (*)] 2 mg PO HS 01/06/18 [Last Taken 02/02/18 21:00] Ibuprofen [Motrin (*)] 200 mg PO DAILY PRN 01/06/18 [Last Taken Unknown] Multivitamins [Multivitamin (*)] 1 each PO DAILY 01/06/18 [Last Taken 02/02/18 08:00] Spironolactone [Aldactone] 100 mg PO HS 01/06/18 [Last Taken 02/02/18 21:00] - NPO status NPO Status: no food or drink >8 hours - Anes Hx Anes Hx: no prior problems - Smoking Hx Smoking Status: Never smoked Marijuana use: No - Family Anes Hx Family Anes Hx: neg - N/A ANE Labs/Vital Signs - Labs Result Diagrams: 02/03/18 11:35 02/03/18 11:35 - Vital Signs Vital Signs: reviewed preoperatively; see RN documention for details Height: 178 cm Weight: 77.6 kg ANE Physical Exam - Airway Neck exam: FROM Mallampati Score: Class 1 Mouth exam: normal dental/mouth exam - Pulmonary Pulmonary: clear to auscultation - Cardiovascular Cardiovascular: regular rate and rhythym - ASA Status ASA Status: II ANE Anesthesia Plan Anesthesia Plan: general endotracheal anesthesia
[2018-02-03] MEDS ORDERED: ROCURONIUM 100 MG/10 ML VIAL ONE (15:03)
[2018-02-03] MEDS ORDERED: DEXAMETHASONE 4 MG/ML VIAL ONE (15:03)
[2018-02-03] MEDS ORDERED: fentaNYL 100 MCG/2 ML INJ ONE (15:03)
[2018-02-03] MEDS ORDERED: PROPOFOL/EMULSION 500 MG/50 ML BOTTLE IV ONE ×3 (15:03→16:34)
[2018-02-03] MEDS ORDERED: LIDOCAINE 2% 2 ML INJ ONE (15:03)
[2018-02-03] MEDS ORDERED: PHENYLEPHRINE HCL 100 MCG/ML SYR ONE ×2 (15:59→16:25)
[2018-02-03] MEDS ORDERED: ISOPROTERENOL HCL/D5W 0.2 MG/50 ML BAG IV ONE ×2 (16:02→16:29)
[2018-02-03] MEDS ORDERED: PROTAMINE SULFATE 50 MG/5 ML VIAL IVP ONE (17:30)
[2018-02-03] MEDS ORDERED: SUGAMMADEX SODIUM 200 MG/2 ML VIAL IVP ONE (17:36)
[2018-02-03] MEDS ORDERED: IBUPROFEN 200 MG TAB PO PRN (17:46)
[2018-02-03] MEDS ORDERED: ACETAMINOPHEN 500 MG TAB PO PRN (17:47)
[2018-02-03] MEDS ORDERED: ALBUTEROL 3 ML DEYVIAL IH PRN (17:47)
[2018-02-03] MEDS ORDERED: NALOXONE HCL 0.4 MG/ML INJ IVP PRN (17:47)
[2018-02-03] MEDS ORDERED: LR 500 ML IV PRN (17:47)
[2018-02-03] MEDS ORDERED: ONDANSETRON 4 MG/2 ML VIAL IVP PRN (18:00)
[2018-02-03] MEDS ORDERED: KETOROLAC 30 MG/1 ML SDV ONE (18:03)
[2018-02-03] MEDS ORDERED: KETOROLAC 15 MG/1 ML SDV IVP ONE (18:15)
[2018-02-03] MEDS ORDERED: ALPRAZolam 1 MG TAB PO SCH (21:00)
[2018-02-03] MEDS ORDERED: SPIRONOLACTONE 50 MG TAB PO SCH (21:00)
[2018-02-03] MEDS ORDERED: ESTRADIOL 1 MG TAB PO SCH (21:00)
[2018-02-03] MEDS ORDERED: DOXEPIN HCL 150 MG PO SCH (21:00)
[2018-02-03] MEDS: CLOPIDOGREL BISULFATE 75 MG TAB PO SCH (21:23)
[2018-02-04 05:04] LABS: PLATELET COUNT 194 10^3/uL (150-400)
[2018-02-04 07:29] VITALS: BP 85/71
--- NOTE | 2018-02-04 07:48 | CPEKG ---
Test Reason : OPEN Blood Pressure : / mmHG Vent. Rate : 072 BPM Atrial Rate : 072 BPM P-R Int : 164 ms QRS Dur : 085 ms QT Int : 419 ms P-R-T Axes : 081 076 073 degrees QTc Int : 459 ms Sinus rhythm Low voltage, precordial leads Confirmed by Jose Jaime ([id number]) on 02/04/2018 7:47:58 AM Referred By: Confirmed By:Jose Jaime
[2018-02-04] MEDS ORDERED: MULTIVITAMINS 1 EACH TAB PO SCH (09:00)
[2018-02-04] MEDS: CLOPIDOGREL BISULFATE 75 MG TAB PO SCH (09:12)
--- NOTE | 2018-02-04 09:53 | ASDISCHSUM ---
Discharge Information Plan Status:Home with No Needs Medically Cleared to Leave: Discharge Date: CM D/C Disposition:Home, Routine, Self-Care ADT D/C Disposition:Home, Routine, Self-Care Projected Discharge Date: Transportation at D/C:Family Discharge Delay Reason: Follow-Up Date: Discharge Slot: Final Diagnosis: Placement Information Patient Contact Information Contact Name:TAI Relationship: Address: Home Phone: Work Phone: City: Alternate Phone: State/Zip Code: Email: Financial Information Financial Class:[facility] Desc[facility] Primary Plan Number:[id number] Secondary Plan Desc: Secondary Plan Number: Assessment Information LACE LACE Length of stay for Answers: Less than 1 day current admission # of Emergency department Answers: 1-2 visits in the last 6 months Social determinants Answers: Mental health diagnosis (anxiety, depression, pers onality disorders, etc.) Score: 4 Date Signed: 02/04/2018 09:51 AM Electronically Signed By:Charisse Real Intervention Information
--- NOTE | 2018-02-04 10:58 | ECHO ---
[email or web address] [address] [address] Main: [phone] Fax: Transthoracic Echocardiogram Name: NEW ENRIQUEZ MR#: [id number] Study Date: 02/04/2018 Study Time: 09:58 AM Date of : 1960 Age: 57 year(s) Height: 177.8 cm (70 in.) Weight: 77.57 kg (171 lb.) BSA: 1.95 m2 Gender: Female Examination: Echo Indication: F/U Post EP Study Image Quality: Adequate Contrast: Requested by: Arnold Vega BP: 85 mmHg/71 mmHg Heart Rate: Rhythm: Indication: F/U Post EP Study Procedure Staff [employer] Teacher: Zelda Dunn RDCS Reading Physician: Rohit Arvizu MD Requesting Provider: Conclusions: Normal study Measurements: Chambers Valvular Assessment AV/MV Valvular Assessment TV/PV Normal Normal Normal Name Value Range Name Value Range Name Value Range Ao Emily (2D): 2.8 cm (1.4 cm-2.6 AV Vmax: 0.95 m/s (1 m/s-1.7 TR Vmax: 2.23 mm/s ( - ) cm) m/s) TR PGmax: 20 mmHg ( - ) IVSd (2D): 0.8 cm (0.6 cm-1.1 AV maxP mmHg ( - ) syst. PAP: 25 mmHg ( - ) cm) AV meanP mmHg ( - ) PV Vmax: 0.72 m/s (0.6 m/s-0.9 LVDd (2D): 3.8 cm (3.9 cm-5.3 BRUNO (VTI): 3.0 cm ( - ) m/s) cm) MV E Vmax: 0.69 m/s ( - ) PV PGmax: 2 mmHg ( - ) LVDs (2D): 2.4 cm (2.1 cm-4 MV A Vmax: 0.59 m/s ( - ) cm) MV E/A: 1.17 ( - ) LVPWd (2D): 0.8 cm ( - ) MV PHT: 0.060 s ( - ) LVOTd 1.9 cm 1.9 cm mm MVA (PHT): 3.7 s ( - ) LVEF (BP): 67 % (>=55 %) RVDd(2D): 2.9 cm (1.9 cm-3.8 cmmm) Continued Measurements: Chambers Valvular Assessment AV/MV Valvular Assessment TV/PV Name Value Name Value Name Value LADs: 3.0 cm MV DecTime: 215 m/s CVP (est.): 5 mmHg LADs Lon.8 cm MV E' Septal: 0.12 m/s LA Area: 13.8 cm2 MV E/E' Septal: 5.90 LA Volume: 33 ml MV E/E' Lateral: 5.60 LA Volume Index: 16.9 ml/m2 RA Area: 12.1 cm2 Patient: NEW ENRIQUEZ Study Date: 02/04/2018 Page 1 of 2 09:58 AM Additional Vessels Name Value Ao Ascendin.9 cm Inferior Vena Cava: 2.3 cm Findings: Left Ventricle: Normal size left ventricle. No LV hypertrophy. Normal global systolic LV function. EF is 67 %. No regional wall motion abnormality. Normal diastolic LV function. Right Ventricle: Normal size right ventricle. Normal RV function. Left Atrium: The left atrium is normal in size. Right Atrium: The right atrium is normal in size. Mitral Valve: The mitral valve is normal in appearance and function. Mild mitral valve regurgitation is present. No mitral stenosis is present. Aortic Valve: The aortic valve is tri-leaflet. There is no significant aortic valve regurgitation. No aortic valve stenosis is present. Tricuspid Valve: The tricuspid valve is normal in appearance and function. Trivial tricuspid valve regurgitation. The pulmonary artery pressure is normal. Right ventricular systolic pressure measures 25mmHg. Pulmonic Valve: The pulmonic valve is normal in appearance and function. There is no pulmonic regurgitation seen. Aorta: The aorta is normal. Normal size aortic root measuring 2.8 cm. Normal size ascending aorta measuring 2.9 cm. IVC: The IVC is mildly dilated. Pericardium: No pericardial effusion. No pleural effusion. (No Signature Object) Patient: NEW ENRIQUEZ Study Date: 02/04/2018 Page 2 of 2 09:58 AM [id number]
--- NOTE | 2018-02-04 12:33 | EPPROC ---
Electrophysiology Procedure Note: PROCEDURE DATE 02/03/2018 ELECTROPHYSIOLOGIC STUDY AND CATHETER MEDIATED ABLATION OF LV FASCICULAR VT Procedures performed: 56458-26 EP evaluation with RA/RV/LA pace/record, with arrhythmia induction 61165-81 EP evaluation with RA/RV pace record, insert/reposition catheter, with arrhythmia induction 72684 Intracardiac catheter ablation, VT arrhythmogenic focus Intracardiac echocardiogram Transseptal puncture Fluoroscopy INDICATION: Sustained VT The patient arrived in the Electrophysiology Laboratory in the fasting state. The right clavicular region, right groin, and left groin area were prepped and draped in the usual sterile manner. Appropriate non-invasive blood pressure, pulse oximetry and end-tidal CO2 monitoring was established. Anesthesiologist Dr. River Vanegas administered anesthesia. All catheters were placed percutaneously using the modified Seldinger technique , and advanced into position under fluoroscopic guidance. One #7 Dominican deflectable octapolar electrode catheter was advanced to the His position via the left femoral vein. Heparin was given to keep ACT >300s. Programmed stimulation was performed from the right atrium, right ventricle and CS (left atrium). All retrograde conduction occurred over the AV node. For transseptal access a SL1 sheath (8.5 Fr) was inserted into the right femoral vein and advanced into the right atrium. Transseptal puncture was performed under intracardiac ultrasound, fluoroscopic and hemodynamic guidance placing the sheath into the left atrium. Fairborn C0 RF needle was used. The mean left atrial pressure was 10 mmHg. The atrial septum was redundant. A 3.5 mm irrigated Navistar STSF ablation catheter with a magnetic sensor for the Carto 3D electroanatomic mapping system was used for mapping. Programmed stimulation during isoproterenol infusion induced sustained ventricular tachycardia, cycle length 280-300 milliseconds. Morphology of ventricular tachycardia was consistent with fascicular ventricular tachycardia arising from the left posterior fascicle. Ventricular tachycardia also occurred easily when the patient was in atrial fibrillation, consistent with fascicular ventricular tachycardia. Mapping of left posterior fascicular area showed area of early ventricular activation in distal inferior ventricular septum. High-resolution mapping in this area demonstrated a fascicular ventricular potential occurring 45 milliseconds before QRS. RF application in this area terminated ventricular tachycardia and rendered it noninducible. Further RF applications were applied superior and inferior to this site. Post ablation program stimulation at baseline and using isoproterenol did not induce any further ventricular tachycardia. Sheaths were removed in the EP lab and hemostasis was achieved with manual pressure and pursestring suture. Patient was transferred to the CV in stable condition. CONCLUSIONS: 1. Fascicular ventricular tachycardia arising from the area of the left posterior fascicle. 2. Successful ablation procedure. 3. No apparent complications. Patient Problems: Problems Problem Status Onset Ventricular tachycardia Acute SVT (supraventricular tachycardia) Acute
--- NOTE | 2018-02-04 12:36 | GDS ---
ADMISSION DIAGNOSIS: Fascicular ventricular tachycardia. DISCHARGE DIAGNOSIS: Successful ablation of fascicular VT HOSPITAL COURSE: Patient presented 02/03/2018 for VT ablation with Dr. Antoni Lora. She had 1 prior VT ablation in 2006, which was unsuccessful due to inability to induce ventricular arrhythmia at that time. She also has a history of AVNRT ablation in 2005. Patient's symptoms had been well controlled with Verapamil for several years. She recently tried stopping Verapamil due to severe constipation, but experienced recurrence of sustained VT at 220 beats per minute in December 2017 Successful ablation of her fascicular VT yesterday without apparent complications. She reports feeling quite well this morning without any specific concerns. Bilateral groin sites are clean and dry. Purse string sutures removed without evidence of hemota, oozing, redness, swelling, warmth or other associated symptoms. The patient is stable for discharge home today. PHYSICAL EXAMINATION: GENERAL: No apparent distress. Alert and oriented x3. CARDIAC: Regular rate and rhythm. RESPIRATORY: Clear to auscultation. EXTREMITIES: Pulses 2+ bilaterally. Bilateral groin sites are clean and dry without evidence of any hematoma, redness, oozing, swelling, or warmth. MEDICATIONS: Please refer to electronic medical record for full medication list. Patient will be discharged on Plavix 75 mg in lieu of her allergy to aspirin. She will continue this medication for 6 weeks. DISCHARGE INSTRUCTIONS: 1. Start Plavix 75 mg daily for 6 weeks. 2. Avoid heavy lifting of more than 10 pounds for 10 days. 3. Get up and walk around every 45 minutes for 45 days. 4. Follow up in clinic with Dr. Lora as scheduled. 5. Avoid any scuba diving or unpressurized air travel given septal puncture for left-sided ablation. 6. Patient will contact our clinic with any new or concerning symptoms prior to her next followup visit. /[id number]/MODL MTDD
--- NOTE | 2018-02-04 13:17 | CPEKG ---
Test Reason : OPEN Blood Pressure : / mmHG Vent. Rate : 066 BPM Atrial Rate : 066 BPM P-R Int : 173 ms QRS Dur : 080 ms QT Int : 415 ms P-R-T Axes : 081 070 067 degrees QTc Int : 435 ms Sinus rhythm Low voltage, precordial leads Anteroseptal infarct, old Confirmed by Jose Jaime ([id number]) on 02/04/2018 1:17:19 PM Referred By: Confirmed By:Jose Jaime
== END 2018-02-04 10:55 | disposition home or self-care (01) ==
LOC: FCATH 10:56 → F2W 17:31
PROVIDERS: ADMIT Internal Medicine Cardiovascular Disease; ATTEND Internal Medicine Cardiovascular Disease
PROC: B245YZZ Ultrasonography of Left Heart using Other Contrast (ICD-10-PCS; principal; 2018-02-03)
PROC: 4A023FZ Measurement of Cardiac Rhythm, Percutaneous Approach (ICD-10-PCS; principal; 2018-02-03)
PROC: 02583ZZ Destruction of Conduction Mechanism, Percutaneous Approach (ICD-10-PCS; principal; 2018-02-03)
PROC: B2151ZZ Fluoroscopy of Left Heart using Low Osmolar Contrast (ICD-10-PCS; principal; 2018-02-03)
PROC: 5A1213Z Performance of Cardiac Pacing, Intermittent (ICD-10-PCS; principal; 2018-02-03)
DX: I47.1 Supraventricular tachycardia (principal)
CPT/HCPCS: 93005; 93306; 93621; 93623; 93654; 93662; C1893; C1894; G0378; C1731; C1732; C1759; J1100; J1644; J1885; J2250; J2270; J2370; J2704; J2720; J3010; Q9967